=== PATIENT | male | born 1975 | race Caucasian/White ===

== ENCOUNTER 2018-12-18 18:40 | Emergency (ER) | payer OTHER ==
[2018-12-18] MEDS ORDERED: ASPIRIN 81 MG PO STA (19:07)
--- NOTE | 2018-12-18 19:10 | ED ---
General Adult HPI - General Chief complaint: Chest Pain Stated complaint: Chest pain Time Seen by Provider: 12/18/18 18:57 Source: patient Mode of arrival: wheelchair Limitations: no limitations - History of Present Illness Initial comments: Dictation was produced using [employer] dictation software. please excuse any grammatical, word or spelling errors. Chief Complaint: 43-year-old male presents with chief complaint of chest pain. History of Present Illness: 43-year-old male with no significant past medical history presents with three-hour history of chest pain. Patient states his pain is sharp and substernal. He states the pain radiates down his left upper extremity. Patient is a regular tobacco user. He does report that his mom had heart conditions starting at the age of 40. Patient denies any diaphoresis. No paresthesias to the jaw or the right shoulder. Has any nausea. Patient states he still currently does have some mild symptoms. The ROS documented in this emergency department record has been reviewed and confirmed by me. Those systems with pertinent positive or negative responses have been documented in the HPI. All other systems are other negative and/or noncontributory. PHYSICAL EXAM: General Impression: Alert and oriented x3, not in acute distress HEENT: Normocephalic atraumatic, extra-ocular movements intact, pupils equal and reactive to light bilaterally, mucous membranes moist. Cardiovascular: Heart regular rate and rhythm, S1&S2 audible, no murmurs, rubs or gallops Chest: Lungs clear to auscultation bilaterally, no rhonchi, no wheeze, no rales Abdomen: Bowel sounds present, abdomen soft, non-tender, non-distended, no organomegaly Musculoskeletal: Pulses present and equal in all extremities, no peripheral edema Motor: no focal deficits noted Neurological: CN II-XII grossly intact, no focal motor or sensory deficits noted Skin: Intact with no visualized rashes Psych: Normal affect and mood ED course: 43-year-old male presents with chief complaint of chest pain. Vital signs upon arrival shows heart rate of 105, rest of vital signs within acceptable limits. Patient given aspirin. Patient states her symptoms improved since being in the emergency department. Laboratory evaluation obtained. CBC, coag panel, metabolic panel is unremarkable. Initial troponin is negative. Chest x-ray is unremarkable. Patient told that his symptoms were worrisome for acute coronary syndrome and that we would recommend the patient be admitted for serial troponins. Patient states that does not want stay because he has to go to work tomorrow. Patient was told that this is against our recommendations. He understands the risk. He did however agree for her troponin. Repeat troponin was performed and found to be negative. Patient reevaluated with improvement of his symptoms. Discussed with patient that he must follow-up with his primary care physician for outpatient stress test and cardiac evaluation. Patient also told to return to the emergency Department with any worsening symptoms. Patient is understandable and agreeable. He request a work note for missing work today. EKG interpretation: Ventricular rate 98, normal sinus rhythm, OR interval 146, QRS 82, QTc 436. No OR prolongation, no QTC prolongation, no ST or T-wave changes noted. Overall, this EKG is unremarkable - Related Data Home Medications Medication Instructions Recorded Confirmed No Known Home Medications 12/18/18 12/18/18 Allergies Allergy/AdvReac Type Severity Reaction Status Date / Time No Known Allergies Allergy Verified 12/18/18 19:26 Review of Systems ROS Statement: Those systems with pertinent positive or pertinent negative responses have been documented in the HPI. ROS Other: All systems not noted in ROS Statement are negative. Past Medical History Past Medical History: No Reported History History of Any Multi-Drug Resistant Organisms: None Reported Past Surgical History: No Surgical Hx Reported Past Psychological History: No Psychological Hx Reported Smoking Status: Current every day smoker Past Alcohol Use History: None Reported Past Drug Use History: None Reported General Exam Limitations: no limitations Course Vital Signs 12/18/18 12/18/18 12/18/18 18:42 20:16 22:00 Temperature 98.2 F 97.5 F L Pulse Rate 105 H 80 73 Respiratory 18 18 20 Rate Blood Pressure 126/82 113/71 121/75 O2 Sat by Pulse 99 97 98 Oximetry Medical Decision Making - Lab Data Result diagrams: 12/18/18 19:20 12/18/18 19:20 Lab Results 12/18/18 12/18/18 12/18/18 Range/Units 19:20 19:20 19:20 WBC 9.9 (3.8-10.6) k/uL RBC 5.03 (4.30-5.90) m/uL Hgb 16.1 (13.0-17.5) gm/dL Hct 47.4 (39.0-53.0) % MCV 94.3 (80.0-100.0) fL MCH 32.1 (25.0-35.0) pg MCHC 34.0 (31.0-37.0) g/dL RDW 12.6 (11.5-15.5) % Plt Count 262 (150-450) k/uL Neutrophils % 57 % Lymphocytes % 35 % Monocytes % 4 % Eosinophils % 2 % Basophils % 1 % Neutrophils # 5.6 (1.3-7.7) k/uL Lymphocytes # 3.4 (1.0-4.8) k/uL Monocytes # 0.4 (0-1.0) k/uL Eosinophils # 0.2 (0-0.7) k/uL Basophils # 0.1 (0-0.2) k/uL PT (9.0-12.0) sec INR (<1.2) APTT (22.0-30.0) sec Sodium 139 (137-145) mmol/L Potassium 4.0 (3.5-5.1) mmol/L Chloride 105 (98-107) mmol/L Carbon Dioxide 27 (22-30) mmol/L Anion Gap 7 mmol/L BUN 11 (9-20) mg/dL Creatinine 0.96 (0.66-1.25) mg/dL Est GFR (CKD-EPI)AfAm >90 (>60 ml/min/1.73 sqM) Est GFR (CKD-EPI)NonAf >90 (>60 ml/min/1.73 sqM) Glucose 104 H (74-99) mg/dL Calcium 8.8 (8.4-10.2) mg/dL Magnesium 1.8 (1.6-2.3) mg/dL Total Bilirubin 1.1 (0.2-1.3) mg/dL AST 29 (17-59) U/L ALT 34 (21-72) U/L Alkaline Phosphatase 38 (38-126) U/L CK-MB (CK-2) 1.2 (0.0-2.4) ng/mL Troponin I <0.012 (0.000-0.034) ng/mL Total Protein 5.7 L (6.3-8.2) g/dL Albumin 3.4 L (3.5-5.0) g/dL 12/18/18 12/18/18 Range/Units 19:20 22:10 WBC (3.8-10.6) k/uL RBC (4.30-5.90) m/uL Hgb (13.0-17.5) gm/dL Hct (39.0-53.0) % MCV (80.0-100.0) fL MCH (25.0-35.0) pg MCHC (31.0-37.0) g/dL RDW (11.5-15.5) % Plt Count (150-450) k/uL Neutrophils % % Lymphocytes % % Monocytes % % Eosinophils % % Basophils % % Neutrophils # (1.3-7.7) k/uL Lymphocytes # (1.0-4.8) k/uL Monocytes # (0-1.0) k/uL Eosinophils # (0-0.7) k/uL Basophils # (0-0.2) k/uL PT 10.2 (9.0-12.0) sec INR 0.9 (<1.2) APTT 22.8 (22.0-30.0) sec Sodium (137-145) mmol/L Potassium (3.5-5.1) mmol/L Chloride (98-107) mmol/L Carbon Dioxide (22-30) mmol/L Anion Gap mmol/L BUN (9-20) mg/dL Creatinine (0.66-1.25) mg/dL Est GFR (CKD-EPI)AfAm (>60 ml/min/1.73 sqM) Est GFR (CKD-EPI)NonAf (>60 ml/min/1.73 sqM) Glucose (74-99) mg/dL Calcium (8.4-10.2) mg/dL Magnesium (1.6-2.3) mg/dL Total Bilirubin (0.2-1.3) mg/dL AST (17-59) U/L ALT (21-72) U/L Alkaline Phosphatase (38-126) U/L CK-MB (CK-2) (0.0-2.4) ng/mL Troponin I <0.012 (0.000-0.034) ng/mL Total Protein (6.3-8.2) g/dL Albumin (3.5-5.0) g/dL Disposition Clinical Impression: Chest pain Disposition: HOME SELF-CARE Condition: Good Instructions (If sedation given, give patient instructions): Chest Pain (ED) Is patient prescribed a controlled substance at d/c from ED?: No Referrals: Tre Jackson MD [REFERRING] - 1-2 days Time of Disposition: 22:55
[2018-12-18 19:40] LABS: Basophils # (A) 0.1 k/uL (0-0.2); Basophils % (A) 1 %; Eosinophils # (A) 0.2 k/uL (0-0.7); Eosinophils % (A) 2 %; HCT 47.4 % (39.0-53.0); HGB 16.1 gm/dL (13.0-17.5); Lymphocytes # (A) 3.4 k/uL (1.0-4.8); Lymphocytes % (A) 35 %; MCH 32.1 pg (25.0-35.0); MCV 94.3 fL (80.0-100.0); Mean Platelet Volume 6.5; Monocytes # (A) 0.4 k/uL (0-1.0); Monocytes % (A) 4 %; Neutrophils # (A) 5.6 k/uL (1.3-7.7); Neutrophils % (A) 57 %; Platelet Count 262 k/uL (150-450); RBC 5.03 m/uL (4.30-5.90); RDW 12.6 % (11.5-15.5); WBC 9.9 k/uL (3.8-10.6)
[2018-12-18 19:51] LABS: INR 0.9 (<1.2); Partial Thromboplastin Time 22.8 sec (22.0-30.0); Prothrombin Time 10.2 sec (9.0-12.0)
[2018-12-18 20:00] LABS: ALT 34 U/L (21-72); AST 29 U/L (17-59); Albumin 3.4 g/dL (3.5-5.0); Alkaline Phosphatase 38 U/L (38-126); Anion Gap 7 mmol/L; Blood Urea Nitrogen 11 mg/dL (9-20); Calcium 8.8 mg/dL (8.4-10.2); Carbon Dioxide 27 mmol/L (22-30); Chloride 105 mmol/L (98-107); Glucose 104 mg/dL (74-99); Magnesium 1.8 mg/dL (1.6-2.3); Sodium 139 mmol/L (137-145); Total Bilirubin 1.1 mg/dL (0.2-1.3); Total Protein 5.7 g/dL (6.3-8.2)
--- NOTE | 2018-12-18 20:08 | XR ---
EXAMINATION TYPE: XR chest 2V DATE OF EXAM: 12/18/2018 COMPARISON: NONE HISTORY: Chest pain TECHNIQUE: Frontal and lateral views of the chest are obtained. FINDINGS: Heart and mediastinum are normal. Lungs are clear. Diaphragm is normal. Bony thorax is int act. IMPRESSION: Normal chest.
[2018-12-18 20:11] LABS: Creatine Kinase MB 1.2 ng/mL (0.0-2.4); Troponin I <0.012 ng/mL (0.000-0.034)
[2018-12-18 22:10] VITALS: RESP 20
[2018-12-18 23:06] VITALS: BP 124/74; PULSE 78; TEMP 97.7
== END 2018-12-18 23:06 | disposition home or self-care (01) ==
LOC: EC 18:40
DX: R07.89 Other chest pain (principal); M79.602 Pain in left arm; F17.200 Nicotine dependence, unspecified, uncomplicated; Z53.20 Procedure and treatment not carried out because of patient's decision for unspecified reasons
CPT/HCPCS: 36415; 71046; 80053; 82553; 83735; 84484; 85025; 85610; 85730; 93005; 99285

== ENCOUNTER 2019-03-09 12:17 | Emergency (ER) | payer OTHER ==
[2019-03-09 12:37] VITALS: RESP 18
[2019-03-09] MEDS ORDERED: KETOROLAC 30 MG/ML 1 ML VIAL IVP STA (12:50)
--- NOTE | 2019-03-09 12:56 | ED ---
General Adult HPI - General Chief complaint: Neck Pain/Injury Stated complaint: Chest Pain Time Seen by Provider: 03/09/19 12:42 Source: patient Mode of arrival: ambulatory Limitations: no limitations - History of Present Illness Initial comments: Patient is a 43-year-old male presents with a chief complaint of neck pain and right arm paresthesias after an injury yesterday while working on a car. The patient states he was working under the wheel well when the car dropped. He says that the car fell about 3-4 inches and landed on kamar's brother will did contact the back of his neck. He states that when he woke up this morning he was having paresthesias of the right hand, and decreased open winder strength on the right. Patient states that he is having midline neck pain. He does not have any exacerbation of his paresthesias with range of motion of the neck. Patient also states that he has difficulty moving his shoulder. - Related Data Home Medications Medication Instructions Recorded Confirmed Ibuprofen [Motrin Ib] 400 mg PO Q6H PRN 03/09/19 03/09/19 Previous Rx's Medication Instructions Recorded Ibuprofen [Motrin] 800 mg PO TID #20 tab 03/09/19 methylPREDNISolone Dose Pack 4 mg PO DIRECTED #21 package 03/09/19 [Medrol Dose Pack] Allergies Allergy/AdvReac Type Severity Reaction Status Date / Time No Known Allergies Allergy Verified 03/09/19 13:02 Review of Systems ROS Statement: Those systems with pertinent positive or pertinent negative responses have been documented in the HPI. ROS Other: All systems not noted in ROS Statement are negative. Musculoskeletal: Reports: arthralgia Neurological: Reports: paresthesias (Right upper extremity) Past Medical History Past Medical History: No Reported History History of Any Multi-Drug Resistant Organisms: None Reported Past Surgical History: No Surgical Hx Reported Past Psychological History: No Psychological Hx Reported Smoking Status: Current every day smoker Past Alcohol Use History: None Reported Past Drug Use History: None Reported General Exam Limitations: no limitations General appearance: alert, in no apparent distress Head exam: Present: atraumatic, normocephalic Eye exam: Present: normal appearance ENT exam: Present: normal exam Neck exam: Present: normal inspection, tenderness (Midline and paraspinal), full ROM. Absent: meningismus Respiratory exam: Present: normal lung sounds bilaterally. Absent: respiratory distress, wheezes Cardiovascular Exam: Present: regular rate, normal rhythm GI/Abdominal exam: Present: soft. Absent: distended, tenderness Rectal exam: Present: deferred Extremities exam: Present: normal inspection, other (patient has difficulty with anterior and lateral extension of the shoulder. he has paresthesias on the right side and 4/5 open winder strength on the right. median, ulnar, and radial nerve distributions are otherwise intact. ). Absent: full ROM Back exam: Present: normal inspection Neurological exam: Present: alert, oriented X3, CN II-XII intact, normal gait Psychiatric exam: Present: normal affect, normal mood Skin exam: Present: warm, dry, intact Course Vital Signs 03/09/19 12:34 Temperature 98.6 F Pulse Rate 92 Respiratory 18 Rate Blood Pressure 118/79 O2 Sat by Pulse 97 Oximetry Medical Decision Making - Medical Decision Making Patient presents with a chief complaint of neck pain and shoulder pain after an injury while working on a car. Patient also complains of some chest pain and pain with deep breathing. On initial evaluation, vitals are stable, patient is in no acute distress. Exam findings concerning for possible spinal cord injury however the patient does not completely fit the picture of a spinal cord syndrome. Patient will be evaluated with basic labs including cardiac enzymes, EKG, computed tomography scan of the head and neck. C-collar was applied. 3:12 PM Laboratory evaluation this patient is unremarkable. Radiology shows no acute process, specifically there is no acute process of the cervical spine. Reexamination, patient's paresthesias are mildly increased with hyperextension of the neck. Case discussed with neurosurgery, Dr. Jones, who does not recommend an emergent MRI at this time. He does recommend a Medrol Dosepak in addition to anti-inflammatories. Results Were Discussed with the Patient, He Is Agreeable to the Care Plan. Patient Was Instructed to Follow up with Primary Care 1-2 Days, Return to the Emergency Department Sooner If Any Symptoms Worsen or Change. - Lab Data Result diagrams: 03/09/19 13:03/09/19 13: Lab Results 03/09/19 03/09/19 03/09/19 Range/Units 13:09 13: 13:09 WBC 8.8 (3.8-10.6) k/uL RBC 5.14 (4.30-5.90) m/uL Hgb 15.9 (13.0-17.5) gm/dL Hct 48.2 (39.0-53.0) % MCV 93.8 (80.0-100.0) fL MCH 30.9 (25.0-35.0) pg MCHC 32.9 (31.0-37.0) g/dL RDW 12.6 (11.5-15.5) % Plt Count 271 (150-450) k/uL Neutrophils % 67 % Lymphocytes % 25 % Monocytes % 4 % Eosinophils % 2 % Basophils % 1 % Neutrophils # 5.9 (1.3-7.7) k/uL Lymphocytes # 2.2 (1.0-4.8) k/uL Monocytes # 0.4 (0-1.0) k/uL Eosinophils # 0.2 (0-0.7) k/uL Basophils # 0.0 (0-0.2) k/uL Sodium 141 (137-145) mmol/L Potassium 4.4 (3.5-5.1) mmol/L Chloride 110 H (98-107) mmol/L Carbon Dioxide 24 (22-30) mmol/L Anion Gap 7 mmol/L BUN 11 (9-20) mg/dL Creatinine 0.90 (0.66-1.25) mg/dL Est GFR (CKD-EPI)AfAm >90 (>60 ml/min/1.73 sqM) Est GFR (CKD-EPI)NonAf >90 (>60 ml/min/1.73 sqM) Glucose 81 (74-99) mg/dL Calcium 9.3 (8.4-10.2) mg/dL Troponin I <0.012 (0.000-0.034) ng/mL Disposition Clinical Impression: Paresthesia, Strain of neck muscle, Neck pain Disposition: HOME SELF-CARE Condition: Good Instructions (If sedation given, give patient instructions): Cervical Strain (ED) Prescriptions: methylPREDNISolone Dose Pack [Medrol Dose Pack] 4 mg PO DIRECTED #21 package Ibuprofen [Motrin] 800 mg PO TID #20 tab Is patient prescribed a controlled substance at d/c from ED?: No Referrals: Nonstaff,Physician [REFERRING] - 1-2 days Morena Hammond MD [STAFF PHYSICIAN] - 1-2 days
[2019-03-09 13:20] LABS: Basophils % (A) 1 %; Eosinophils # (A) 0.2 k/uL (0-0.7); Eosinophils % (A) 2 %; HCT 48.2 % (39.0-53.0); HGB 15.9 gm/dL (13.0-17.5); Lymphocytes # (A) 2.2 k/uL (1.0-4.8); Lymphocytes % (A) 25 %; MCH 30.9 pg (25.0-35.0); MCHC 32.9 g/dL (31.0-37.0); MCV 93.8 fL (80.0-100.0); Mean Platelet Volume 6.4; Monocytes # (A) 0.4 k/uL (0-1.0); Monocytes % (A) 4 %; Neutrophils # (A) 5.9 k/uL (1.3-7.7); Neutrophils % (A) 67 %; Platelet Count 271 k/uL (150-450); RBC 5.14 m/uL (4.30-5.90); RDW 12.6 % (11.5-15.5); WBC 8.8 k/uL (3.8-10.6)
--- NOTE | 2019-03-09 13:30 | CT ---
EXAMINATION TYPE: CT brain frank [place] DATE OF EXAM: 03/09/2019 COMPARISON: NONE HISTORY: Headache and neck pain post traumatic injury CT DLP: 1317.5 mGycm. Automated Exposure Control for Dose Reduction was Utilized. TECHNIQUE: CT scan of the head and cervical spine are performed without contrast. FINDINGS: There is no acute intracranial hemorrhage, mass effect, or midline shift identified. The ventricles and sulci are within normal limits in size. Chiu-white matter differentiation is preserve d. The globes are intact and the visualized sinuses are clear. The calvarium is intact. Cervical spine is visualized in its entirety from C1 through upper thoracic levels and demonstrates s traightened without evidence of acute fracture or dislocation. Prevertebral soft tissue appears with in normal limits. The C1-C2 articulation is within normal limits on the coronal images. Vertebral body heights are maintained. There is mild to moderate narrowing with moderate spurring C5- C6 level as well as posterior right paracentral spur disc complex effacing anterior lateral thecal sa c on axial image 69 and sagittal image 29 causing asymmetric [id number] right-sided neural fora connie narrowing. Remainder cervical levels felt within normal limits. Thyroid gland is within normal limits. Lung apices show mild emphysematous change in the periphery. IMPRESSION: 1. There is no acute fracture or dislocation evident in the cervical spine. 2. No acute intracranial hemorrhage or midline shift is seen.
[2019-03-09 13:34] LABS: African American GFR (CKD) >90 (>60 ml/min/1.73 sqM); Anion Gap 7 mmol/L; Blood Urea Nitrogen 11 mg/dL (9-20); Calcium 9.3 mg/dL (8.4-10.2); Carbon Dioxide 24 mmol/L (22-30); Chloride 110 mmol/L (98-107); Glucose 81 mg/dL (74-99); Potassium 4.4 mmol/L (3.5-5.1); Sodium 141 mmol/L (137-145)
--- NOTE | 2019-03-09 14:04 | XR ---
EXAMINATION TYPE: XR chest 2V DATE OF EXAM: 03/09/2019 COMPARISON: Chest x-ray December 18, 2018 HISTORY: Chest pain causing right arm numbness. TECHNIQUE: Frontal and lateral views of the chest are obtained. FINDINGS: There is patchy left greater than right bibasilar opacities. No pleural effusion or pneumo thorax is seen bilaterally. The cardiac silhouette size remains within normal limits. The osseous s tructures are intact. IMPRESSION: Patchy left greater than right bibasilar acute infiltrate and/or atelectasis.
--- NOTE | 2019-03-09 14:05 | XR ---
EXAMINATION TYPE: XR shoulder complete RT DATE OF EXAM: 03/09/2019 CLINICAL HISTORY: Pain after injury. TECHNIQUE: Three views of the right shoulder are obtained. COMPARISON: None. FINDINGS: There is no acute fracture/dislocation evident in the right shoulder. [id number] jaylin rowing acromioclavicular joint is present. Distal acromion morphology is unremarkable. There is mild narrowing inferior glenohumeral joint. The visualized ribs are intact and unremarkable. IMPRESSION: There is no acute fracture or dislocation in the right shoulder.
[2019-03-09 15:25] VITALS: BP 124/75; PULSE 84; TEMP 98.7
== END 2019-03-09 15:25 | disposition home or self-care (01) ==
LOC: EC 12:17
DX: S16.1XXA Strain of muscle, fascia and tendon at neck level, initial encounter (principal); R07.1 Chest pain on breathing; F17.200 Nicotine dependence, unspecified, uncomplicated; W20.8XXA Other cause of strike by thrown, projected or falling object, initial encounter; Y93.89 Activity, other specified
CPT/HCPCS: 36415; 93005; 80048; 84484; 85025; 73030; 71046; 72125; 70450; 99284; 96374; L0120; J1885

== ENCOUNTER 2019-03-21 09:04 | Emergency (ER) | payer OTHER ==
[2019-03-21 09:10] VITALS: BP 127/77; PULSE 104; RESP 18; TEMP 98
[2019-03-21] MEDS ORDERED: ORPHENADRINE 30 MG/ML 2 ML VIAL IM STA (09:28)
[2019-03-21] MEDS ORDERED: ACET/COD 300 MG/30 MG STARTER PACK 6 TAB BTL PO STA (09:28)
[2019-03-21] MEDS ORDERED: KETOROLAC 60 MG/2 ML VIAL IM STA (09:28)
--- NOTE | 2019-03-21 09:32 | ED ---
Upper Extremity HPI - General Chief Complaint: Extremity Injury, Upper Stated Complaint: Neck/shoulder pain Time Seen by Provider: 03/21/19 09:10 Source: patient, RN notes reviewed, old records reviewed Mode of arrival: ambulatory Limitations: no limitations - History of Present Illness Initial Comments: Patient is a 43-year-old male who presents emergency department today for evaluation with complaints of right-sided neck and shoulder pain. Patient reportedly had a car vaishnavi fall on to his neck approximately 10 days ago. He was evaluated in the emergency department at that time. Had a CT of the cervical spine showed no acute fracture malalignment. 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 Patient is right- handed. He states that yesterday while he was at work he dropped an extensive coffee machine. Patient reportedly has had some pain with range of motion turning his head to the right and pain with range of motion of abduction of the shoulder. He states that he has sensation of his fingertips but feels slightly different on the right compared to the left. He denies any chest pain shortness of breath nausea or vomiting. Patient states he was started on steroids and muscle axis is particular medications as prescribed. Today's his last day of steroids. Patient denies any recent fever, chills, shortness of breath, chest pain, back pain, abdominal pain, nausea vomiting, numbness or tingling, dysuria or hematuria, constipation or diarrhea, headaches or visual changes, or any oth er current symptoms - Related Data Previous Rx's Medication Instructions Recorded Ibuprofen [Motrin] 800 mg PO TID #20 tab 03/09/19 Acetaminophen with Codeine 1 tab PO Q6H PRN 3 Days #12 tab 03/21/19 [Tylenol w/codeine #3] Dexamethasone 0.75 mg PO DAILY #12 tab 03/21/19 Methocarbamol [Robaxin] 1,000 mg PO QID #20 tab 03/21/19 Allergies Allergy/AdvReac Type Severity Reaction Status Date / Time No Known Allergies Allergy Verified 03/21/19 09:36 Review of Systems ROS Statement: Those systems with pertinent positive or pertinent negative responses have been documented in the HPI. ROS Other: All systems not noted in ROS Statement are negative. Past Medical History Past Medical History: No Reported History History of Any Multi-Drug Resistant Organisms: None Reported Past Surgical History: No Surgical Hx Reported Past Psychological History: No Psychological Hx Reported Smoking Status: Current every day smoker Past Alcohol Use History: None Reported Past Drug Use History: None Reported General Exam - General Exam Comments Initial Comments: This is a 43-year-old male. Alert and oriented 3. No significant distress. Limitations: no limitations General appearance: alert, in no apparent distress Head exam: Present: atraumatic, normocephalic, normal inspection Eye exam: Present: normal appearance ENT exam: Present: normal exam, mucous membranes moist Neck exam: Present: normal inspection Respiratory exam: Present: normal lung sounds bilaterally. Absent: respiratory distress, wheezes, rales, rhonchi, stridor Cardiovascular Exam: Present: regular rate, normal rhythm, normal heart sounds. Absent: systolic murmur, diastolic murmur, rubs, gallop, clicks GI/Abdominal exam: Present: soft, normal bowel sounds. Absent: distended, tenderness, guarding, rebound, rigid Extremities exam: Present: normal inspection, full ROM, normal capillary refill, other (Has a 4 out of 5 primary school teacher librarian strength on the right hand. He reports diminished sensation over the right fingertips but can still feel light touch. Patient has pain with abduction greater than 90. Evidence of muscle spasm over the right trapezius muscle.). Absent: tenderness, pedal edema, joint swelling, calf tenderness Back exam: Present: normal inspection Course Vital Signs 03/21/19 09:05 Temperature 98 F Pulse Rate 104 H Respiratory 18 Rate Blood Pressure 127/77 O2 Sat by Pulse 96 Oximetry Medical Decision Making - Medical Decision Making Is a 43-year-old male presents today with complaints of right sided neck strain, he's had a injury approximately so. That time CT was negative for any acute process. At the same Patient has possibility of nerve damage, complains of a 4 out of her primary school teacher librarian strength is right-hand. Patient this time is denying pain medications [final codeine for pain. Discussed Patient is follow-up with a neurosurgical specialist. Discussed case with Dr. Suarez. He has no other significant concerning signs. Discussed return parameters. - Radiology Data Radiology results: report reviewed (100 for) Disposition Clinical Impression: Paresthesia, Strain of neck muscle Disposition: HOME SELF-CARE Condition: Good Instructions (If sedation given, give patient instructions): Cervical Strain (ED) Additional Instructions: Patient resting medications as prescribed. Close follow-up with orthopedic electronic commerce specialist. Return to the emergency department if any alarming signs or symptoms occur. Prescriptions: Dexamethasone 0.75 mg PO DAILY #12 tab Methocarbamol [Robaxin] 1,000 mg PO QID #20 tab Acetaminophen with Codeine [Tylenol w/codeine #3] 1 tab PO Q6H PRN 3 Days #12 tab PRN Reason: Pain Is patient prescribed a controlled substance at d/c from ED?: Yes When asked, does pt state using other controlled substances?: No If Rx opioid, was Start Talking consent form obtained?: Yes Referrals: Sheila Del Rosario MD [Primary Care Provider] - 1-2 days Time of Disposition: 10:43
== END 2019-03-21 11:05 | disposition home or self-care (01) ==
LOC: EC 09:04
DX: S16.1XXD Strain of muscle, fascia and tendon at neck level, subsequent encounter (principal); M25.511 Pain in right shoulder; F17.200 Nicotine dependence, unspecified, uncomplicated; W20.8XXD Other cause of strike by thrown, projected or falling object, subsequent encounter
CPT/HCPCS: 96372; 99283

== ENCOUNTER → 2023-05-10 | Outpatient (CLI) | payer BC, OTHER ==
--- NOTE | 2023-05-10 10:36 | CA ---
Exercise Stress Test Report Name: Sukhdev Menard Exam Date: 05/10/2023 08:56 Exam Location: [facility] Stress Ht (in): 71 Wt (lb): 220 BSA: 2.20 Ordering Phys: Dimitris Wright MD Referring Phys: Wilda Linda PAC Technologist: Suraj Dumont Age: 48 Gender: M : 1975 Procedure CPT: Indications: R06.09 OTHER FORMS OF DYSPNEA R22.42 Localized swe ICD-10 Codes: Patient History: History of heart disease and short of breath Medications: Meds past 24 hrs: Pretest Chest Pain: STRESS TEST [place] Protocol Exercise Duration (min:sec): 05:[address] Depressions (mm): 0 Angina Score: 0 Shin Score: 5.98 Resting HR (bpm): 88 Peak HR (bpm): 155 Resting BP (mmHg): 117 / 94 Peak BP (mmHg): 170 / 96 MPHR: 170 Target HR: 145 % MPHR: 91 METS: 7.1 Total Dose: Peak Dose: Atropine: Double Product: 75093 BP Response: Stress Termination: Reached target heart rate Stress Symptoms: Dyspnea Stress Summary: The patient's target heart rate was achieved ECG ANALYSIS Resting ECG: Sinus rhythm. Normal conduction. No arrhythmias. Normal repolarization. Stress ECG: No ECG evidence of ischemia with exercise. CONCLUSIONS Patient falls into low-risk group (DTS >= +5). This associates the patient with an annual CV mortality <= 0.5%. 1. Average exercise tolerance 2. Normal electrocardiographic response to exercise with no evidence of stress induced ischemia Dr. Ulices Culp MD (Electronically Signed) Final Date: 10 May 2023 10:35
== END | disposition home or self-care (01) ==
LOC: RADNMMAIN 07:29
PROVIDERS: ATTEND Family Medicine
DX: R06.09 Other forms of dyspnea (principal); R22.42 Localized swelling, mass and lump, left lower limb; R71.8 Other abnormality of red blood cells
CPT/HCPCS: 93017

== ENCOUNTER → 2023-05-10 | Outpatient (CLI) | payer BC, OTHER ==
--- NOTE | 2023-05-10 10:55 | US ---
EXAMINATION TYPE: US venous doppler duplex LE LT DATE OF EXAM: 05/10/2023 7:17 AM COMPARISON: NONE CLINICAL INDICATION: Male, 48 years old with history of R22.42 localized swelling; No hx of DVT. Tiara ent did not take blood thinners. Swelling x a couple months. SIDE PERFORMED: Left TECHNIQUE: The lower extremity deep venous system is examined utilizing real time linear array sonog bakari with graded compression, doppler sonography and color-flow sonography. VESSELS IMAGED: Common Femoral Vein Deep Femoral Vein Greater Saphenous Vein * Femoral Vein Popliteal Vein Small Saphenous Vein * Proximal Calf Veins (* superficial vessels) Left Leg: No evidence of DVT. IMPRESSION: No evidence of DVT at this time.
== END | disposition home or self-care (01) ==
LOC: RADUSWWP 06:58
PROVIDERS: ATTEND Family Medicine
DX: R22.42 Localized swelling, mass and lump, left lower limb (principal)
CPT/HCPCS: 82550; 82607; 82746; 84425

== ENCOUNTER 2024-09-19 21:39 | Emergency (ER) | payer BC ==
[2024-09-19 21:45] VITALS: RESP 18
[2024-09-19] MEDS: SODIUM CHLORIDE 0.9% 1,000 ML IV STA (21:53)
[2024-09-19] MEDS: diphenhydrAMINE 50 MG/ML 1 ML VIAL IVP STA (21:54)
[2024-09-19] MEDS: METOCLOPRAMIDE 5 MG/ML 2 ML VIAL IVP STA (21:54)
[2024-09-19] MEDS: MORPHINE SULFATE 4 MG/ML SYRINGE IVP STA (21:54)
[2024-09-19 22:07] LABS: Basophils % (A) 0 %; Eosinophils # (A) 0.1 k/uL (0-0.7); Eosinophils % (A) 1 %; HCT 44.6 % (39.0-53.0); HGB 15.1 gm/dL (13.0-17.5); Lymphocytes # (A) 1.7 k/uL (1.0-4.8); Lymphocytes % (A) 13 %; MCHC 33.8 g/dL (31.0-37.0); MCV 91.7 fL (80.0-100.0); Mean Platelet Volume 7.8; Monocytes # (A) 0.4 k/uL (0-1.0); Monocytes % (A) 3 %; Neutrophils # (A) 11.5 k/uL (1.3-7.7); Neutrophils % (A) 83 %; Platelet Count 298 k/uL (150-450); RBC 4.86 m/uL (4.30-5.90); RDW 12.9 % (11.5-15.5); WBC 13.9 k/uL (3.8-10.6)
--- NOTE | 2024-09-19 22:09 | XR ---
EXAMINATION TYPE: XR chest 2V DATE OF EXAM: 09/19/2024 10:05 PM COMPARISON: 03/09/2019 CLINICAL INDICATION: Male, 49 years old with history of abdominal pain, TECHNIQUE: XR chest 2V view(s) obtained. FINDINGS: The heart size is normal. The pulmonary vasculature is normal. On the lateral projection there is a triangular increased density overlying the spine. Posterior infi ltrate present correlate for atelectasis or pneumonia. Follow-up is recommended.. IMPRESSION: 1. Posterior lower lobe infiltrate. Follow-up recommended. Consider atelectasis and pneumonia. [facility], Workstation: [id number], 09/19/2024 10:07 PM
[2024-09-19 22:25] LABS: ALT 133 U/L (4-49); AST 180 U/L (17-59); African American GFR (CKD) >90 (>60 ml/min/1.73 sqM); Albumin 4.2 g/dL (3.5-5.0); Alkaline Phosphatase 47 U/L (38-126); Anion Gap 8 mmol/L; Blood Urea Nitrogen 12 mg/dL (9-20); Calcium 9.2 mg/dL (8.4-10.2); Carbon Dioxide 31 mmol/L (22-30); Chloride 100 mmol/L (98-107); Glucose 135 mg/dL (74-99); Non-African American GFR(CKD) 88 (>60 ml/min/1.73 sqM); Potassium 4.6 mmol/L (3.5-5.1); Sodium 139 mmol/L (137-145); Total Bilirubin 1.8 mg/dL (0.2-1.3); Total Protein 7.1 g/dL (6.3-8.2)
[2024-09-19 23:12] LABS: Appearance,Urine Clear (Clear); Bilirubin,Urine Negative (Negative); Blood,Urine Negative (Negative); Color,Urine Yellow; Glucose,Urine (UA) Negative (Negative); Ketones,Urine Negative (Negative); Leukocyte Esterase,Urine Negative (Negative); Nitrite,Urine Negative (Negative); Protein,Urine Trace (Negative)
[2024-09-19 23:21] LABS: Lipase >20000 U/L (23-300)
[2024-09-19 23:47] LABS: Specific Gravity,Urine 1.049 (1.001-1.035)
--- NOTE | 2024-09-20 00:54 | CT ---
EXAM: CT Abdomen and Pelvis With Intravenous Contrast CLINICAL HISTORY: ITS.REASON CT Reason: epigastric pain, vomiting TECHNIQUE: Axial computed tomography images of the abdomen and pelvis with intravenous contrast. CTDI is 39.8 mGy and DLP is 2017.7 mGy-cm. This CT exam was performed using one or more of the following dose reduction techniques: automated exposure control, adjustment of the mA and/or kV according to patient size, and/or use of iterative reconstruction technique. COMPARISON: No relevant prior studies available. FINDINGS: Lung bases: Unremarkable. No mass. No consolidation. ABDOMEN: Liver: Unremarkable. No mass. Gallbladder and bile ducts: Unremarkable. No calcified stones. No ductal dilation. Pancreas: Edema surrounding the pancreas, concerning for pancreatitis. Mild reactive wall thickening of the adjacent duodenum. No ductal dilation. Spleen: Unremarkable. No splenomegaly. Adrenals: Unremarkable. No mass. Kidneys and ureters: Unremarkable. No solid mass. No hydronephrosis. Stomach and bowel: Unremarkable. No obstruction. No mucosal thickening. PELVIS: Appendix: No findings to suggest acute appendicitis. Bladder: Unremarkable. No mass. Reproductive: Unremarkable as visualized. ABDOMEN and PELVIS: Intraperitoneal space: Unremarkable. No free air. No significant fluid collection. Bones/joints: No acute fracture. No dislocation. Soft tissues: Small fat-containing bilateral inguinal hernias. Vasculature: Unremarkable. No abdominal aortic aneurysm. Lymph nodes: Unremarkable. No enlarged lymph nodes. IMPRESSION: Edema surrounding the pancreas, concerning for pancreatitis. Mild reactive wall thickening of the adjacent duodenum.
[2024-09-20] MEDS: SODIUM CHLORIDE 0.9% 1,000 ML IV SCH (02:06)
[2024-09-20] MEDS: HYDROmorphone 1 MG/ML 1 ML SYRINGE IVP STA (02:07)
[2024-09-20 02:11] VITALS: PULSE 81
--- NOTE | 2024-09-20 02:15 | ED ---
General Adult HPI - General Chief complaint: Chest Pain Stated complaint: Chest pain Time Seen by Provider: 09/19/24 21:40 Source: patient Mode of arrival: EMS Limitations: no limitations - History of Present Illness Initial comments: This patient is a 49-year-old male with no reported past medical history who presents emergency department reporting epigastric pain. He reports that the pain started while he was at work 4 hours ago. It is located in the epigastric region and radiates to his right arm. The pain has been constant. He tried to eat something at home and vomited the food all back up. He did not take anything for pain. No history of similar in the past. Denies cardiac history. He did call EMS who provided him with 324 mg of aspirin, 1 nitro and 4 mg of Zofran. Patient states that the nitro did not help his discomfort. He denies any fevers. No alcohol use. Denies history of high cholesterol. Patient does not take any prescribed medications but does take [id number] Gummies. No history of any type of abdominal surgeries. He denies any numbness, tingling or weakness in his legs. No shortness of breath. No other alleviating, precipitating or modifying factors - Related Data Previous Rx's Medication Instructions Recorded Ibuprofen [Motrin] 800 mg PO TID #20 tab 03/09/19 Acetaminophen with Codeine 1 tab PO Q6H PRN 3 Days #12 tab 03/21/19 [Tylenol w/codeine #3] dexAMETHasone [Decadron] 0.75 mg PO DAILY #12 tab 03/21/19 methocarbamoL [Robaxin] 1,000 mg PO QID #20 tab 03/21/19 Allergies Allergy/AdvReac Type Severity Reaction Status Date / Time No Known Allergies Allergy Verified 09/19/24 21:45 Review of Systems ROS Statement: Those systems with pertinent positive or pertinent negative responses have been documented in the HPI. ROS Other: All systems not noted in ROS Statement are negative. Past Medical History Past Medical History: No Reported History History of Any Multi-Drug Resistant Organisms: None Reported Past Surgical History: No Surgical Hx Reported Past Psychological History: No Psychological Hx Reported Smoking Status: Current every day smoker Past Alcohol Use History: None Reported Past Drug Use History: None Reported General Exam Limitations: no limitations General appearance: alert, in distress Head exam: Present: atraumatic Eye exam: Present: normal appearance, PERRL, EOMI. Absent: scleral icterus, conjunctival injection, periorbital swelling ENT exam: Present: normal exam, normal oropharynx Respiratory exam: Present: normal lung sounds bilaterally. Absent: respiratory distress, wheezes, rales, rhonchi, stridor Cardiovascular Exam: Present: regular rate, normal rhythm, normal heart sounds. Absent: systolic murmur, diastolic murmur, rubs, gallop, clicks GI/Abdominal exam: Present: tenderness (epigastric). Absent: guarding, rebound, rigid Extremities exam: Present: normal inspection Neurological exam: Present: alert, oriented X3, CN II-XII intact Psychiatric exam: Present: normal affect, normal mood Skin exam: Present: warm, dry, intact, normal color. Absent: rash Course Vital Signs 09/19/24 09/19/24 21:40 21:46 Temperature 99.3 F Pulse Rate 93 90 Respiratory 18 Rate Blood Pressure 121/77 O2 Sat by Pulse 94 L Oximetry Medical Decision Making - Medical Decision Making Was pt. sent in by a medical professional or institution (, PA, MECHANICAL ENGINEERING INTERN, urgent care, hospital, or prison...) When possible be specific @ -No Did you speak to anyone other than the patient for history (EMS, parent, family, police, friend...)? What history was obtained from this source @ -Spoke with EMS for history Did you review nursing and triage notes (agree or disagree)? Why? @ -I reviewed and agree with nursing and triage notes Were old charts reviewed (outside hosp., previous admission, EMS record, old EKG, old radiological studies, urgent care reports/EKG's, prison records)? Report findings @ -No old charts were reviewed Differential Diagnosis (chest pain, altered mental status, abdominal pain women, abdominal pain men, vaginal bleeding, weakness, fever, dyspnea, syncope, headache, dizziness, GI bleed, back pain, seizure, CVA, palpatations, mental health, musculoskeletal)? @ -Differential Abdominal Pain Men: Appendicitis, cholecystitis, diverticulosis, ischemic bowel, pancreatitis, hepatitis, UTI, gastroenteritis, AAA, incarcerated hernia, bowel obstruction, constipation, inflammatory bowel, hepatitis, peptic ulcer disease, splenic infarction, perforated viscus, testicular torsion, this is not meant to be an all-inclusive list EKG interpreted by me (3pts min.). @ -Yes and demonstrates sinus rhythm with a rate of 91. MN interval 135. QRS 85. QTc of 390. No acute ST segment elevations or depressions X-rays interpreted by me (1pt min.). @ -Yes and demonstrates posterior lower lobe infiltrate. Patient has no clinical symptoms CT interpreted by me (1pt min.). @ -Yes and demonstrates signs of acute pancreatitis U/S interpreted by me (1pt. min.). @ -None done What testing was considered but not performed or refused? (CT, X-rays, U/S, labs)? Why? @ -None What meds were considered but not given or refused? Why? @ -None Did you discuss the management of the patient with other professionals (professionals i.e. , PA, MECHANICAL ENGINEERING INTERN, lab, RT, psych nurse, social work assistant, wire wrapping machine operator, teacher, flight radio officer, registered nurse hh case manager)? Give summary @ -Spoke with Dr. Swanson and requested admission. He refused admission stating that he felt the patient should have a GI doctor available for which we do not have Was smoking cessation discussed for >3mins.? @ -No Was critical care preformed (if so, how long)? @ -No Were there social determinants of health that impacted care today? How? (Homelessness, low income, unemployed, alcoholism, drug addiction, transportation, low edu. Level, literacy, decrease access to med. care, intermediate, rehab)? @ -No Was there de-escalation of care discussed even if they declined (Discuss DNR or withdrawal of care, Hospice)? DNR status @ -No What co-morbidities impacted this encounter? (DM, HTN, Smoking, COPD, CAD, Cancer, CVA, ARF, Chemo, Hep., AIDS, mental health diagnosis, sleep apnea, morbid obesity)? @ -None Was patient admitted / discharged? Hospital course, mention meds given and route, prescriptions, significant lab abnormalities, going to OR and other pertinent info. @ -Upon arrival patient seen and evaluated in room 2. Thorough history and physical exam was performed. IV had been established by EMS. Laboratory studies are conducted. Patient was placed on continuous pulse ox and cardiac monitoring. Twelve-lead EKG was obtained. Patient was administered pain and nausea medications. Chest x-ray was performed, CT of the abdomen and pelvis was performed. Patient does have a lipase greater than 20,000. CT demonstrates signs for acute pancreatitis. I did call and speak with my admitting hospitalist Dr. Swanson. He refuses the admission. We do not have GI c apabilities and he feels that the patient needs a GI specialist due to his elevated liver enzymes. I did discuss this with the patient. He was agreeable to transfer. He request [facility]. I did call and speak with Dr. Gray. Was agreeable to accept my admission. The patient will go from ER to ER. Patient was administered additional pain medications prior to transfer. He was transferred in stable condition Undiagnosed new problem with uncertain prognosis? @ -No Drug Therapy requiring intensive monitoring for toxicity (Heparin, Nitro, Insulin, Cardizem)? @ -No Were any procedures done? @ -No Diagnosis/symptom? @ -Acute epigastric pain, acute pancreatitis, transaminitis Acute, or Chronic, or Acute on Chronic? @ -Acute Uncomplicated (without systemic symptoms) or Complicated (systemic symptoms)? @ -Complicated Side effects of treatment? @ -No Exacerbation, Progression, or Severe Exacerbation? @ -No Poses a threat to life or bodily function? How? (Chest pain, [place], [place], pneumonia, PE, COPD, DKA, ARF, appy, cholecystitis, CVA, Diverticulitis, Homicidal, Suicidal, threat to staff... and all critical care pts) @ -No - Lab Data Result diagrams: 09/19/24 21:46 09/19/24 21:46 Lab Results 09/19/24 09/19/24 09/19/24 Range/Units 21:46 21:46 21:46 WBC 13.9 H (3.8-10.6) k/uL RBC 4.86 (4.30-5.90) m/uL Hgb 15.1 (13.0-17.5) gm/dL Hct 44.6 (39.0-53.0) % MCV 91.7 (80.0-100.0) fL MCH 31.0 (25.0-35.0) pg MCHC 33.8 (31.0-37.0) g/dL RDW 12.9 (11.5-15.5) % Plt Count 298 (150-450) k/uL MPV 7.8 Neutrophils % 83 % Lymphocytes % 13 % Monocytes % 3 % Eosinophils % 1 % Basophils % 0 % Neutrophils # 11.5 H (1.3-7.7) k/uL Lymphocytes # 1.7 (1.0-4.8) k/uL Monocytes # 0.4 (0-1.0) k/uL Eosinophils # 0.1 (0-0.7) k/uL Basophils # 0.0 (0-0.2) k/uL Sodium 139 (137-145) mmol/L Potassium 4.6 (3.5-5.1) mmol/L Chloride 100 (98-107) mmol/L Carbon Dioxide 31 H (22-30) mmol/L Anion Gap 8 mmol/L BUN 12 (9-20) mg/dL Creatinine 0.99 (0.66-1.25) mg/dL Est GFR (CKD-EPI)AfAm >90 (>60 ml/min/1.73 sqM) Est GFR (CKD-EPI)NonAf 88 (>60 ml/min/1.73 sqM) Glucose 135 H (74-99) mg/dL Plasma Lactic Acid [place] 1.4 (0.7-2.0) mmol/L Calcium 9.2 (8.4-10.2) mg/dL Total Bilirubin 1.8 H (0.2-1.3) mg/dL AST 180 H (17-59) U/L ALT 133 H (4-49) U/L Alkaline Phosphatase 47 (38-126) U/L Troponin I (0.000-0.034) ng/mL Total Protein 7.1 (6.3-8.2) g/dL Albumin 4.2 (3.5-5.0) g/dL Lipase >80378 H (23-300) U/L Urine Color Urine Appearance (Clear) Urine pH (5.0-8.0) Ur Specific [place] (1.001-1.035) Urine Protein (Negative) Urine Glucose (UA) (Negative) Urine Ketones (Negative) Urine Blood (Negative) Urine Nitrite (Negative) Urine Bilirubin (Negative) Urine Urobilinogen (<2.0) mg/dL Ur Leukocyte Esterase (Negative) 09/19/24 09/19/24 Range/Units 21:46 22:51 WBC (3.8-10.6) k/uL RBC (4.30-5.90) m/uL Hgb (13.0-17.5) gm/dL Hct (39.0-53.0) % MCV (80.0-100.0) fL MCH (25.0-35.0) pg MCHC (31.0-37.0) g/dL RDW (11.5-15.5) % Plt Count (150-450) k/uL MPV Neutrophils % % Lymphocytes % % Monocytes % % Eosinophils % % Basophils % % Neutrophils # (1.3-7.7) k/uL Lymphocytes # (1.0-4.8) k/uL Monocytes # (0-1.0) k/uL Eosinophils # (0-0.7) k/uL Basophils # (0-0.2) k/uL Sodium (137-145) mmol/L Potassium (3.5-5.1) mmol/L Chloride (98-107) mmol/L Carbon Dioxide (22-30) mmol/L Anion Gap mmol/L BUN (9-20) mg/dL Creatinine (0.66-1.25) mg/dL Est GFR (CKD-EPI)AfAm (>60 ml/min/1.73 sqM) Est GFR (CKD-EPI)NonAf (>60 ml/min/1.73 sqM) Glucose (74-99) mg/dL Plasma Lactic Acid [place] (0.7-2.0) mmol/L Calcium (8.4-10.2) mg/dL Total Bilirubin (0.2-1.3) mg/dL AST (17-59) U/L ALT (4-49) U/L Alkaline Phosphatase (38-126) U/L Troponin I <0.012 (0.000-0.034) ng/mL Total Protein (6.3-8.2) g/dL Albumin (3.5-5.0) g/dL Lipase (23-300) U/L Urine Color Yellow Urine Appearance Clear (Clear) Urine pH 7.0 (5.0-8.0) Ur Specific [place] 1.049 H (1.001-1.035) Urine Protein Trace H (Negative) Urine Glucose (UA) Negative (Negative) Urine Ketones Negative (Negative) Urine Blood Negative (Negative) Urine Nitrite Negative (Negative) Urine Bilirubin Negative (Negative) Urine Urobilinogen 2.0 (<2.0) mg/dL Ur Leukocyte Esterase Negative (Negative) Disposition Clinical Impression: Acute pancreatitis, Acute epigastric pain, Nausea & vomiting Disposition: OTHER INSTITUTION NOT DEFINED Condition: Stable Is patient prescribed a controlled substance at d/c from ED?: No Referrals: Dimitris Wright MD [Primary Care Provider] - 1-2 days Time of Disposition: 02:15 - Out of Hospital Transfer - Req. Specs Out of Hospital Transfer - Requested Specifics: Other Emergency Center ([facility])
[2024-09-20 03:14] VITALS: BP 116/71; TEMP 99.1
== END 2024-09-20 03:05 | disposition other institution (70) ==
LOC: EC 21:39
DX: K85.90 Acute pancreatitis without necrosis or infection, unspecified (principal); R10.13 Epigastric pain; R11.2 Nausea with vomiting, unspecified; F17.200 Nicotine dependence, unspecified, uncomplicated
CPT/HCPCS: 36415; 93005; 80053; 83605; 83690; 84484; 85025; 81003; 71046; 74177; 99285; 96374; 96375 ×2; 96361 ×2; J2270; J1200; J2765; J1171; Q9967